=== PATIENT | female | born 1995 | race African-American/Black ===

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

== ENCOUNTER 2017-03-09 23:22 | Emergency (ER) | payer BC ==
[2017-03-10 00:31] LABS: Urine Bacteria Absent (Absent); Urine Bilirubin Negative (Negative); Urine Glucose Negative (Negative); Urine Nitrite Negative (Negative)
[2017-03-10 00:56] LABS: UR Preg Internal Control QC Line Present
[2017-03-10] MEDS ORDERED: cefTRIAXone VIAL(*) 250 MG VIAL IM ONE (04:15)
[2017-03-10] MEDS ORDERED: DOXYcycline CAP(*) 100 MG PO ONE (04:15)
[2017-03-10] MEDS ORDERED: Lidocaine 1%* 5 ML VIAL ONE (04:28)
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
[2017-03-10 04:55] VITALS: BP 130/84
[2017-03-10 09:48] LABS: Trichomonas Source Endocervical (Negative)
== END 2017-03-10 04:53 | disposition home or self-care (01) ==
LOC: ED 23:22
DX: Z20.2 Contact with and (suspected) exposure to infections with a predominantly sexual mode of transmission (principal)
CPT/HCPCS: 81003; 81015; 81025; 87480; 87491; 87510; 87591; 87661; 99283; A9270-GY; J0696

== ENCOUNTER 2017-04-22 02:09 | Emergency (ER) | payer BC ==
[2017-04-22 04:08] LABS: ALT 11 U/L (7-52); Albumin 4.4 g/dL (3.2-5.2); Alcohol 36 mg/dL (<10); Alkaline Phosphatase 54 U/L (34-104); BUN/Creatinine Ratio 13.2 (8-20); Blood Urea Nitrogen 12 mg/dL (6-24); CO2 Carbon Dioxide 24 mmol/L (22-32); Calcium 9.5 mg/dL (8.6-10.3); Chloride 107 mmol/L (101-111); EGFR African American 102.4 (>60); EGFR Non-African American 79.6 (>60); Globulin 2.5 g/dL (2-4); Glucose 117 mg/dL (70-100); Sodium 139 mmol/L (133-145); Total Protein 6.9 g/dL (6.4-8.9)
[2017-04-22 04:42] LABS: Anion Gap 8 mmol/L (2-11)
[2017-04-22 05:34] LABS: TSH (Thyroid Stimulating Horm) 1.73 mcIU/mL (0.34-5.60)
[2017-04-22 07:31] VITALS: BP 114/65
--- NOTE | 2017-04-22 12:00 | ED ---
Vangie Reynolds Alfonso, scribed for Yusef Rick MD on 04/22/17 at 1137 . Progress - Progress Note Progress Note: This patient was signed out at shift change, pending disposition, awaiting MHE. The patients condition is deemed stable by Dr. Norman (psychiatrist) and she will be discharged to home with Dx of depressive disorder. - Consult/PCP Time Called: 05:00 Course/Dx - Diagnoses Provider Diagnoses: Depressive disorder The documentation as recorded by the Vangie bynum Alfonso accurately reflects the service I personally performed and the decisions made by Prabhjot goldman Walter, MD.
== END 2017-04-22 11:46 ==
LOC: ED 02:09
DX: F32.9 Major depressive disorder, single episode, unspecified (principal)
CPT/HCPCS: 36415; 80053; 80320; 84443; 99285; G0480